=== PATIENT | male | born 1990 | race Caucasian/White ===

== ENCOUNTER 2019-07-02 13:52 | Emergency (ER) | payer SELFPAY ==
[~2019-07-02] VITALS: Ht 180.3 cm; Wt 81.8 kg
[2019-07-02 13:54] VITALS: Ht 180.3 cm; Wt 81.8 kg
[2019-07-02 15:26] LABS: APPEARANCE CLEAR (CLEAR); BILIRUBIN NEGATIVE (NEGATIVE); COLOR YELLOW (YELLOW); GLUCOSE NEGATIVE (NEGATIVE); KETONE NEGATIVE (NEGATIVE); NITRITE NEGATIVE (NEGATIVE); PROTEIN NEGATIVE (NEGATIVE); UROBILINOGEN NORMAL (NORMAL)
[2019-07-02] MEDS ORDERED: NAPROSYN500 MG PO (16:22)
[2019-07-02 16:51] VITALS: BP 104/66
== END 2019-07-02 16:58 | disposition home or self-care (01) ==
LOC: D.ER 13:52
PROVIDERS: Family Medicine
DX: R07.81 Pleurodynia (principal); Y00.XXXA Assault by blunt object, initial encounter; F17.210 Nicotine dependence, cigarettes, uncomplicated